=== PATIENT | male | born 1955 | race Caucasian/White ===

== ENCOUNTER 2021-05-17 19:02 | Emergency (ER) | payer BC ==
[2021-05-17] MEDS ORDERED: Furosemide 40 MG/4 ML VIAL IVPUSH ONE (19:20)
[2021-05-17 20:03] LABS: ANION GAP 14.7 mEq/L (7-13); CHLORIDE,CL 102 mmol/L (98-107); SODIUM,NA 136 mmol/L (136-145)
[2021-05-17] MEDS ORDERED: Doxycycline Monohydrate 100 MG Cap PO ONE (20:51)
--- NOTE | 2021-05-17 20:57 | EDM.PDOC ---
ED HPI GENERAL MEDICAL PROBLEM - General Chief Complaint: Skin Complaint Stated Complaint: SCRAPPED LEG, LOOKS INFECTED PER PT Time Seen by Provider: 05/17/21 19:20 Source of Information: Reports: Patient History Limitations: Reports: No Limitations - History of Present Illness INITIAL COMMENTS - FREE TEXT/NARRATIVE: ED with c/o sore to right lower leg for one week, [facility]. Hx MRSA approximately 10 years ago. Type 2 diabetes. No fever or chills. States scraped outer upper leg on plywood in [facility]. - Related Data Allergies Allergy/AdvReac Type Severity Reaction Status Date / Time No Known Allergies Allergy Verified 05/17/21 19:28 Home Meds: Home Meds Insulin Aspart [Novolog Flexpen] 9 units SUBCNJ TID 05/17/21 [History] Insulin Degludec [Tresiba] 30 units SUBCNJ BEDTIME 05/17/21 [History] Losartan/Hydrochlorothiazide [Losartan-HCTZ 100-25 MG] 1 tab PO DAILY 05/17/21 [History] Rivaroxaban [Xarelto] 10 mg PO DAILY 05/17/21 [History] Simvastatin 20 mg PO BEDTIME 05/17/21 [History] Social & Family History - Tobacco Use Tobacco Use Status *Q: Current Every Day Tobacco User Years of Tobacco use: 40 Packs/Tins Daily: 0.5 - Caffeine Use Caffeine Use: Reports: Coffee - Recreational Drug Use Recreational Drug Use: No ED ROS GENERAL - Review of Systems Review Of Systems: Comprehensive ROS is negative, except as noted in HPI. ED EXAM, SKIN/RASH Exam: See Below Exam Limited By: No Limitations General Appearance: Alert, No Apparent Distress Eye Exam: Bilateral Eye: EOMI, PERRL Ears: Normal External Exam Nose: Normal Inspection Throat/Mouth: Normal Inspection Head: Atraumatic, Normocephalic Neck: Normal Inspection Respiratory/Chest: No Respiratory Distress, Lungs Clear, Normal Breath Sounds Cardiovascular: Normal Peripheral Pulses, Regular Rate, Rhythm GI/Abdominal: Normal Bowel Sounds Extremities: Pedal Edema (3+ to knees) Neurological: Alert, Oriented Psychiatric: Normal Affect, Normal Mood Skin: Other (right outer calf upper lateral red, supperficial abrasion scant white/yellow crusting. errythema ) Course - Vital Signs Last Recorded V/S: Last Vital Signs Temp 98.1 F 05/17/21 19:17 Pulse 80 05/17/21 19:17 Resp 20 05/17/21 19:17 BP 173/67 H 05/17/21 19:17 Pulse Ox 97 05/17/21 19:17 - Orders/Labs/Meds Orders: Active Orders 24 hr Category Date Time Status CULTURE BLOOD [BC] Stat Lab 05/17/21 19:33 Received CULTURE BLOOD [BC] Stat Lab 05/17/21 19:33 Received Blood Culture x2 Reflex Set [OM.PC] Stat Oth 05/17/21 19:18 Ordered Labs: Laboratory Tests 05/17/21 05/17/21 05/17/21 Range/Units 19:33 19:33 19:33 WBC 7.8 (5.0-10.0) 10^3/uL RBC 4.46 L (4.6-6.2) 10^6/uL Hgb 13.4 L (14.0-18.0) g/dL Hct 41.6 (40.0-54.0) % MCV 93.3 (80-100) fL MCH 30.0 (27.0-34.0) pg MCHC 32.2 L (33.0-35.0) g/dL Plt Count 203 (150-450) 10^3/uL Neut % (Auto) 69.9 (42.2-75.2) % Lymph % (Auto) 19.9 L (20.5-50.1) % [place] % (Auto) 7.9 (2-8) % Eos % (Auto) 1.9 (1.0-3.0) % Baso % (Auto) 0.4 (0.0-1.0) % Sodium 136 (136-145) mmol/L Potassium 4.7 (3.5-5.1) mmol/L Chloride 102 (98-107) mmol/L Carbon Dioxide 24 (21-32) mmol/L Anion Gap 14.7 H (7-13) mEq/L BUN 24 H (7-18) mg/dL Creatinine 1.14 (0.70-1.30) mg/dL Est Cr Clr Drug Dosing 69.72 mL/min Estimated GFR (MDRD) > 60 BUN/Creatinine Ratio 21.1 (No establ ref range) Glucose 352 H (70-99) mg/dL Lactic Acid 2.8 H* (0.4-2.0) mmol/L Calcium 8.2 L (8.5-10.1) mg/dL Total Bilirubin 0.2 (0.2-1.0) mg/dL AST 12 L (15-37) U/L ALT 21 (16-63) U/L Alkaline Phosphatase 120 H (46-116) U/L B-Natriuretic Peptide 140 H (0-100) pg/ml Total Protein 7.1 (6.4-8.2) g/dL Albumin 3.2 L (3.4-5.0) g/dL Globulin 3.9 Albumin/Globulin Ratio 0.82 Meds: Medications Discontinued Medications Generic Name Dose Route Start Last Admin Trade Name Freq PRN Reason Stop Dose Admin Doxycycline Monohydrate 100 mg 05/17/21 20:51 05/17/21 21:00 Doxycycline Monohydrate 100 Mg Cap PO 05/17/21 20:52 100 mg ONETIME ONE Administration Furosemide 40 mg 05/17/21 19:20 05/17/21 19:35 Furosemide 40 Mg/4 Ml Vial IVPUSH 05/17/21 19:21 40 mg ONETIME ONE Administration Morphine Sulfate 2 mg 05/17/21 21:06 Morphine 2 Mg/Ml Syringe IVPUSH 05/17/21 21:07 ONETIME ONE Departure - Departure Time of Disposition: 20:54 Disposition: Home, Self-Care 01 Condition: Good Clinical Impression: Abrasion, Hyperglycemia Cellulitis Qualifiers: Site of cellulitis: extremity Site of cellulitis of extremity: lower extremity Laterality: right Qualified Code(s): L03.115 - Cellulitis of right lower limb - Discharge Information *PRESCRIPTION DRUG MONITORING PROGRAM REVIEWED*: No *COPY OF PRESCRIPTION DRUG MONITORING REPORT IN PATIENT JEANNINE: No Instructions: Cellulitis, Adult, Hyperglycemia Forms: ED Department Discharge Additional Instructions: improve control of blood sugars to promote healing. elevate extremities doxycycline 100mg one twice daily for 10 days mupirocin apply twice daily to affected area recheck clinic on Thursday Follow up sooner if increased Sepsis Event Note (ED) - Evaluation Sepsis Screening Result: No Definite Risk - Focused Exam Vital Signs: Vital Signs Temp Pulse Resp BP Pulse Ox 05/17/21 19:17 98.1 F 80 20 173/67 H 97 - My Orders Last 24 Hours: My Active Orders 05/17/21 19:18 Blood Culture x2 Reflex Set [OM.PC] Stat 05/17/21 19:33 CULTURE BLOOD [BC] Stat CULTURE BLOOD [BC] Stat - Assessment/Plan Last 24 Hours: My Active Orders 05/17/21 19:18 Blood Culture x2 Reflex Set [OM.PC] Stat 05/17/21 19:33 CULTURE BLOOD [BC] Stat CULTURE BLOOD [BC] Stat
[2021-05-17] MEDS ORDERED: Morphine 2 MG/ML SYRINGE IVPUSH ONE (21:06)
== END 2021-05-17 22:16 | disposition home or self-care (01) ==
LOC: DL.ED 19:02
DX: S80.811A Abrasion, right lower leg, initial encounter (principal); L03.115 Cellulitis of right lower limb; E11.65 Type 2 diabetes mellitus with hyperglycemia; Z72.0 Tobacco use; X58.XXXA Exposure to other specified factors, initial encounter
CPT/HCPCS: 36415; 80053; 83605; 83880; 85025; 87040; 96374; 99283; A9270; J1940